=== PATIENT | female | born 1940 | race Caucasian/White ===

== ENCOUNTER 2024-09-15 20:04 | Emergency (ER) | payer MEDICARE, OTHER, SELFPAY ==
--- NOTE | ~2024-09-15 | CT_ITS ---
CT abdomen pelvis wo con Ordering provider: Alexia Junior PA-C History: 84 years Female with . LLQ pain, nausea . Comparison: None. Technique: CT abdomen and pelvis with IV and without oral contrast. Automated exposure control and it erative reconstruction technique were employed. The dose-length product was 1143.42 mGy-cm. Findings: VISUALIZED LOWER CHEST: Dependent atelectatic changes. Borderline cardiomegaly. Trace of pericardial effusion is seen posteriorly. 7 mm nodule is seen in the left lung base laterally. 6 months follow-up CT chest is advised. Tiny nodule in the right lung base measuring 5 mm is also noted. UPPER ABDOMINAL ORGANS: Liver: Normal. Gallbladder: Normal. Spleen: Normal. Stomach/duodenum: Small sliding hiatus hernia. Pancreas: Normal. Adrenals: Normal. Kidneys: Right parapelvic cyst measuring 1.8 cm is noted. PELVIC ORGANS: The bladder is underfilled. Artifacts are seen in the pelvis. BOWEL AND MESENTERY: Colon: diverticulitis of the sigmoid colon near to the junction with the descending colon is noted w ith thickening of the wall and surrounding fat stranding. No abscess formation seen... Normal appendi x. Small Bowel: Normal. No obstruction. Peritoneum/mesentery: No free air or free fluid. No mesenteric lymphadenopathy. RETROPERITONEUM: Mild atheromatous disease of the abdominal aorta. No retroperitoneal lymphadenopat hy. MUSCULOSKELETAL: Superficial soft tissues: The superficial soft tissues are normal. Bones: Age appropriate degenerative changes of the spine. Bilateral hip arthroplasty. Mild dextroscol iosis. Bilateral sacroiliitis. IMPRESSION: 1. Sigmoid colon diverticulitis with no abscess formation. 2. Bilateral lung nodules. 6 months follow-up CT is advised. No evidence of appendicitis or intestin al obstruction. Reviewed, dictated and finalized at location A. IMPRESSION: 1. Sigmoid colon diverticulitis with no abscess formation. 2. Bilateral lung nodules. 6 months follow-up CT is advised. No evidence of ap pendicitis or intestinal obstruction.
--- OUTSIDE RECORDS SUMMARY | 2024-09-15 20:06 | XMS_ITS | Continuity of Care Document ---
Author Organization [facility] ter Address [address] [place] [address] Phone Care Team Providers Care Research Chemical Engineer Name Role Phone Berenice TAYLOR Pierce Unavailable Unavailable Allergies, Adverse Reactions, Alerts Substance Reaction Status Criticality clindamycin Active No Information Medications Medication Instructions Dosage Effective Dates (start - stop) Status Comments levothyroxine 112 mcg tablet take 1 tablet by oral route every day 112 MCG - Active Tylenol Extra Strength 500 mg tablet take 2 tablet by oral route every 4 - 6 hours as needed not to exceed 8 tablets per 24hrs 1000 MG - Active turmeric root extract 500 mg capsule - Active Vitamin D3 4,000 unit capsule - Active [place] 3-6-9 1,200 mg capsule 1 tab daily - Active magnesium 250 mg tablet - Active Procedures Procedure Date New Patient E/M Moderate [facility] External Photos Est Patient E/M Moderate [facility] Est Patient E/M Moderate [facility] Est Pt Comprhensive Visl Field Exam, Limited Est Pt Comprhensive Scan Computerized; Optic Nerve 18 Est Pt Comprhensive VISUAL FIELD EXAMINATION(S) OFFICE/OUTPATIENT VISIT, NEW Cataract W/IOL 1 Stage Echo Exam Of The Eye, Professional, Left Anesth, Lens Surgery; 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; Without Medical Direction By A Physician Cataract W/Iol 1 Stage, Facility Fee May PATIENT DOCUMENTS NO EVENTS ON DISCHARGE Patient WO Preop Order For I v Antibiotic Surgical Site Inf (Ssi) Prophlaxis Eye Exam Established Patient Cataract W/IOL 1 Stage Cataract W/Iol 1 Stage, Facility Fee Apr PATIENT DOCUMENTS NO EVENTS ON DISCHARGE Patient WO Preop Order For I v Antibiotic Surgical Site Inf (Ssi) Prophlaxis Anesth, Lens Surgery; Security Installation Sales Technician S er; Without Medical Direction By A Physician Echo Exam Of The Eye, ProfessionalHenry Echo Exam Of Eye; Technical Component No OFFICE/OUTPATIENT VISIT, NEW Advance Directives Directive Yes / No Effective Date File Name No Information Encounters Encounter Description Practice Location Reason(s) For Visit Diagnoses Date Provider Providers Copied on Encounter New Patient E/M Moderate [facility], [address] [place], [place], [id number], tel:[phone] [place] Blurry vision (chief complaint) Dry eye syndrome of bilateral lacrimal glandsPresen ce of pseudophakia 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 [address], [id number], [place]. tel:[phone] Referring Provider: Pierce Ng, [address] [place] [address], [id number] . tel:[phone] Est Patient E/M Moderate [facility], [address] [place], [place], [id number], tel:[phone] 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 [address] [place] [address], [id number], [place]. tel:[phone] Referring Provider: Manuel Flowers, [address] [place] [address], [id number] . tel:[phone] Est Patient E/M Moderate [facility], [address] [place], [id number], [place] tel:[phone] [place] 1 year follow up on Thyrotoxicosi s (chief complaint) Thyrotoxicos is w diffuse goiter w/o thyrotoxic crisisDiplop ia 1 No Information Est Pt [facility], [facility] [address] [place], [id number], [place] tel:[phone] [place] 1yr DFE/OCT/RNFL and HVF 24-[address] Ortega. (chief complaint) Thyrotoxicos is w diffuse goiter w/o thyrotoxic crisisOther mechanical strabismusDi plopia 0 No Information [facility], [facility] [address] [place], [id number], [place] tel:[phone] [place] vf taped/untaped (chief complaint) Other mechanical strabismus 0 No Information Est Pt [facility], [facility] [address] [place], [id number], [place] tel:[phone] [place] 2 week follow up/lab results (chief complaint) Thyrotoxicos is w diffuse goiter w/o thyrotoxic crisisOther mechanical strabismusDi plopia 8 No Information Est Pt [facility], [facility] [address] [place], [id number], [place] tel:[phone] [place] 2 months follow-up (chief complaint) Thyrotoxicos is w diffuse goiter w/o thyrotoxic crisisOther mechanical strabismusDi plopia 8 No Information OFFICE/OUTPAT IENT VISIT, [facility], [address] [place], [id number], [place] tel:[phone] [place] plastic consult (chief complaint) Dermatochala sis of right lower eyelidDiplop iaOther mechanical strabismus 8 No Information [facility], [address] [place], [id number], [place] tel:[phone] [place] [facility] No Information 4 No Information [facility] [place], [address] [facility] [place], [id number], [place] tel:[phone] [facility] [place] No Information 4 [facility] [address] [place], [id number], [place]. tel:[phone] [facility], [address] [place] [address] [place], [id number], [place] tel:[phone] [place] [address] No Information 4 No Information [facility], [address] [place] [address] [place], [id number], [place] tel:[phone] [place], [place] [address]i [place] No Information 4 Dylon Garza. [address] [place] [address] [place], [id number], [place]. tel:[phone] [place] [address], [address] [place] [address] [place], [id number], [place] tel:[phone] [place] [address] eye cataract evaluation OS (chief complaint) Other and combined forms of senile cataract 4 No Information [facility], [address] [place] [address] [place], [id number], [place] tel:[phone] [place] No Information 4 No Information [facility], [address] [place] [address] [place], [id number], [place] tel:[phone] [place], [place] [address] [place] No Information 4 No Information [facility], [facility] [place], [id number], [place] tel:[phone] [place] [address] Surgi [place] No Information 4 [facility] [address] [place] [address] [place], [id number], [place]. tel:[phone] [place] [address], [address] [place] [address] [place], [id number], [place] tel:[phone] [place] [facility] [place] No Information 4 No Information [facility], [address] [place] [address] [place], [id number], [place] tel:[phone] Julien ASCAN (chief complaint) No Information No Information OFFICE/OUTPAT IENT VISIT, [facility] [place], [address] [place], [place], [id number], [place] tel:[phone] Jul[place] cataract evaluation (chief complaint) Other and combined forms of senile cataract No Information Referring Provider: Corinna Cm [address] , [place], [address]. tel:[phone] Family History Family Member Type Diagnosis Age At Onset Mother Problem (finding) diabetes mellitus type 2 Mother Problem (finding) glaucoma Payers Payer name Insurance type Covered democrat ID Authorcarinea monika(s) [facility] [id number] Social History Type Description Quantity Date Captured Comments Alcohol Use Details No Caffeine Use Details coffee 1 cup per day Tobacco Use Status Current non-smoker Smoking Status Never smoker Non-Smoking Tobacco Use Details : No Details Available : No Details Available Sex Female Chief Complaint And Reason For Visit From encounter dated '03/07/2023 14:50'. Blurry vision (chief complaint) Reason For Referral Reason For Referral No Information Plan Of Treatment Date Type Action Status Patient Education Cataracts: After Your V isit completed History Of Present Illness Encounter Date Complaint History Of Prese nt Illness Blurry vision The 82 year old female presents for evaluation of Blurry vision in the right eye and left eye. History of thyroid eye disease and Cataract sx OU. Patient states vision has been very cloudy, film in vision OU. Patient has been experiencing extreme itching, watering and burning for the past 6 months along with vision decrease. Patient currently on OTC AFT PRN OU. No flashes of light or floaters. Patient also experiencing light sensitivity. Graves disease The 80 year old female presents for evaluation of Graves disease in the right eye and left eye. The symptom is constant. Pt states vision is getting worse since last visit with a Dr. Pt states that shes had thyroid issues for about 5 years. Pt states that sometimes OD looks a little larger on certain days. Pt states she is struggling with double vision. Pt states the double vision happens mostly in peripheral vision but lately has been in central vision. Pt notes dryness and scratchiness OU. Pt states that sometimes when she wipes her OU she experiences pain. Pt is using levothyroxine to treat thyroid. Pt states that she is very light sensitive and gets burning sensation when out in the sun.Pt is using AFT. 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 It started about 1 year(s) ago. The symptom is frequent. The condition is worsening and now interfering with driving. The condition is described as seeing two images side by side that clears to one when either eye is closed. In addition, the condition is associated with daily activity and chores. Patient also c/o dryness and light sensitivity. Patient is using artificial tears prn, but c/o that it causes the eyes to burn at times. Patient feels the bulging of her eyes is stable, not worse, but saw an ad about a medication for bulging eyes and would like to know if something like that would be available. 1yr DFE/OCT/RNFL and HVF 24-[address] Ortega. The 79 year old female presents for evaluation of 1yr DFE/OCT/RNFL and HVF 24-[address] Ortega. 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 Patient reports vision has worsened since last visit, double vision is still persistent, pain/discomfort OS - quick on/off, itching on/off OU - OS worse, has fat deposits on outside of lower lids - seem to be growing, tearing OU - not as bad as before. Patient was refereed to Dr. Brownlee, but was told no treatment was needed to follow. Tried different prism lenses and none seem to help.Patient currently on AFT PRN scratchy vf taped/untaped The 79 year old female presents for evaluation of vf taped/untaped per Dr. Lovett. 2 week follow up/lab results The 77 year old female presents for 2 week follow up/lab results in the right eye and left eye. It started about 4 month(s) ago. The onset was progressive. The symptom is constant. The condition is not any better. The condition is described as having double vision. In addition, the condition is associated with looking to the left and when relaxed and head is slightlty tilted to the left. 2 months follow-up The 77 year o ld female presents for 2 months follow-up mechanical strabismus. The condition is described vision good and stable since last visit. Patient denies new changes/ or complaints. plastic consult per Dr. Lunsford, Patient being referred for constant double vision in OS, Per Dr. Lunsford's notes if patient lifts ASAEL the double vision goes away, patient states she only notces the double vision when looking to far left gaze, patient states OS lately has been tearing constantly, patient states since CE IOL OS 2013 Dr. Strange she has always felt something on ASAEL temporal side, patient states she feels pheripheal vision is decreased due to drooping lids, patient states she feels like she has a arredondo on 2nd eye cataract evaluation OS T he patient is present for evaluation of 2nd eye cataract evaluation OS per Dr. Lunsford, co-managed Dr. Lunsford, patient states she is now ready for 2nd eye cataract surgery OS, patient states over the past year she has noticed a decrease in OS vision, patient states some light sensitivty only at night, patient states some blurry vision OS ASCAN cataract evaluation The patient is present for evaluation of cataract evaluation per Dr. Lunsford co-managed, patient states over the past 2 years she has noticed a decrease in OU distance vision all the time, patient has noticed a lot of light sensitivty during the day and night, patient states she feels like she is looking through a fog Functional Status Date Functional Assessmen t No Information Instructions Date Instruction Additional Infor ana maria Impression/Plan - Pt education on importance of good glucose control/stability. RTC yearly CEE with DFE/Mac OCT. Continue care with PCP as directed. Related to Dry eye syndrome of bilateral lacrimal glands Impression/Plan - Le ns in good position. Vision stable.RT/RD precautions reviewed.Continue with yearly DFEs or prn Related to Presence of pseudophakia Impression/Plan - Ex am stable today vs 03/26. Patient has no new complaints. Will continue to monitor with yearly exams. 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 First episode of active disease in [id number] following LOVING. On exam, LAWRENCE is 1 (pain behind eyes, intermittent). No other signs of active disease. pupils brisk OU. +exophthalmos OU, +VA. EOm's with mild restriction. Ortho in primary. +lid retraction OU. No indications for emergent surgical intervention.Discussed treatment options. PAtient previously declined strab surgery with Dr. Solis. PAtient declined decompression. Will connect patient with administrators for chronic SHA [facility] study. 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 Discussed treatment plan with patient. Lengthy conversation was had with patient regarding options for correcting her current exophthalmos. Patient understands she can decide to proceed with Strabismus Surgery, with little to no improvement in Diplopia, or can try prism glasses. Patient wishes to hold of on moving forward with either option at this time. Patient advised to call and schedule an appointment in the event of further bulging of the eyes, pain or discomfort upon movement or if double vision worsens. TSI, Free T4, TSH, T3 ordered and given to patient in clinic today. Return in 1month for a follow up. *Patient is currently being treated during COVID-19 epidemic, which limits our availability to establish proper follow up care. Patient understands these limitations, and is aware that we will continue treatment and follow up based on our availability, as determined by local state and federal guidelines. 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 Discussed treatment plan with patient. Lengthy conversation was had with patient regarding options for correcting her current exophthalmos. Patient understands she can decide to proceed with Strabismus Surgery, with little to no improvement in Diplopia, or can try prism glasses. Patient wishes to hold of on moving forward with either option at this time. Patient understands she is no eligible for Tepezza due to her symptoms only being mechanical. Patient advised to call and schedule an appointment in the event of further bulging of the eyes, pain or discomfort upon movement or if double vision worsens. 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 Discussed treatment options with patient. Today no congestive or compressive or inflammtory symptoms found on exam related to thyroid eye disease. Free T3 and T4, TSH, and TSH-R AB lab reviewed with patient; positive TSHR AB consistent with graves disease, mostly euthyroid but low T3; pt to discuss with Endocrine. Diplopia Recommend patient wear prism or consider eye muscle sx. Patient declines prism. Mild proptosis RT; declines decompression sx due to risk. Referral for Neuro Optho/ Adult Strabimus for Eye muscle sx; made aware of incommitant nature of ocular muscle deviation, so surgery benefits might be limted. All questions answered and discussed in great detail with patient. 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 Use AT gtts for comfort and warm compress QID OU. 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 Discussed treatment options with patient. 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 Which would explain diplopia and orbit findings. Today no congestive or compressive or inflammtory symptoms found on exam related to thyroid eye disease. Free T3 and T4, TSH, and TSH-R AB lab ordered. Recommend patient wear prism. Patient declines prism, could trial steroids doubt those will help. Possible referral for Neuro Optho/ Adult Strabimus for Eye muscle sx; although possible low success due to incommitant nature of ocular muscle deviation. RNFL ordered and reviewed with patient. 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 Discussed treatment options with patient. CT scar ordered w/ and w/o sagital, coronal, aand axial 1mm cuts. Will continue to monitor. BUN creatine ordered. Patient instructed to bring paper report and disc. 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 Used over current RX on trial frame for 30 minutes with resolution of diplopia. Consider fresnel vs. ground in prism after review of imaging and rule out of other orbit etiologies of diplopia. Related to Diplopia Impression/Plan - Di scussed diagnosis in detail with patient. No treatment is required at this time. Will continue to observe condition and or symptoms. HVF reviewed with patient Related to Dermatochalasis of right lower eyelid - Cataracts account for the patient's complaints. Discussed all risks, benefits, procedures and recovery. Patient understands changing glasses will not improve vision. Patient desires to have surgery, recommend phacoemulsification with intraocular lens. Schedule CE/IOL OS. RL 2. Standard IOL, aim plano. Co-manage Dr. Lunsford. Related to Other and combined forms of senile cataract - Surgery Related to Other and combined forms of senile cataract - Discussed cataract s and surgery in detail. Full discussion R, B, A. Discussed IOL options. All questions answered. Patient wants surgery. Schedule CE/IOL OD RL 2. Standard IOL, aim plano. Co-manage Dr. Lunsford. 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
[2024-09-15 20:08] VITALS: BP 139/60; PULSE 85; RESP 18; TEMP 37.1; O2SAT 99
--- OUTSIDE RECORDS SUMMARY | 2024-09-15 20:41 | XMS_ITS | Continuity of Care Document ---
Author Organization [facility] ter Address [address] [place] [address] Phone Care Team Providers Care Associate Relations Specialist Name Role Phone Berenice TAYLOR Pierce Unavailable [...] Vitamin D3 4,000 unit capsule - Active Winigan 3-6-9 1,200 mg capsule 1 tab daily - Active magnesium 250 mg tablet - Active Procedures Procedure Date New Patient E/M Moderate [facility] External Photos Est Patient E/M Moderate [facility] Est Patient E/M Moderate [facility] Est Pt Comprhensive Visl Field Exam, Limited Est Pt Comprhensive Scan Computerized; Optic Nerve 18 Est Pt Comprhensive VISUAL FIELD EXAMINATION(S) OFFICE/OUTPATIENT VISIT, NEW Cataract W/IOL 1 Stage Echo Exam Of The Eye, Professional, Left Anesth, Lens Surgery; Clinical Manager Home Care S ervice; Without Medical Direction By A [...] Site Inf (Ssi) Prophlaxis Anesth, Lens Surgery; Clinical Manager Home Care S er; Without Medical Direction By A Physician Echo Exam Of The Eye, ProfessionalHenry Echo Exam Of Eye; Technical Component No OFFICE/OUTPATIENT VISIT, NEW Advance Directives Directive Yes / No Effective Date File Name No Information Encounters Encounter Description Practice Location Reason(s) For Visit Diagnoses Date Provider Providers Copied on Encounter New Patient E/M Moderate [facility], [address] [place], [place], [id number], tel:[phone] [place] Blurry vision (chief complaint) Dry eye syndrome of bilateral lacrimal glandsPresen ce of pseudophakia 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 [address], [id number], [place]. tel:[phone] Referring Provider: Pierce Ng, [address] [place] [address], [id number] . tel:[phone] Est Patient E/M Moderate [facility], [address] [place], [place], [id number], tel:[phone] [facility] Graves disease (chief complaint) Thyrotoxicos is with diffuse goiter without thyrotoxic crisis or storm Mar-2 1 Magan Jackson. [address] [place] [address], [id number], [place]. tel:[phone] Referring Provider: Manuel Flowers, [address] [place] [address], [id number] . tel:[phone] Est Patient E/M Moderate [facility], [address] [place], [id number], [place] tel:[phone] [place] 1 year follow up on Thyrotoxicosi s (chief complaint) Thyrotoxicos is w diffuse goiter w/o thyrotoxic crisisDiplop ia 1 No Information Est Pt [facility], [facility] [place], [id number], [place] tel:[phone] [place] 1yr DFE/OCT/RNFL and HVF 24-[address] Ortega. (chief complaint) Thyrotoxicos is w diffuse goiter w/o thyrotoxic crisisOther mechanical strabismusDi plopia 0 No Information [facility], [facility] [place], [id number], [place] tel:[phone] [place] vf taped/untaped (chief complaint) Other mechanical strabismus 0 No Information Est Pt [facility], [facility] [address] [place], [id number], [place] tel:[phone] [place] 2 week follow up/lab results (chief complaint) Thyrotoxicos is w diffuse goiter w/o thyrotoxic crisisOther mechanical strabismusDi plopia 8 No Information Est [facility], [facility] [place], [id number], [place] tel:[phone] [place] 2 months follow-up (chief complaint) Thyrotoxicos is w diffuse goiter w/o thyrotoxic crisisOther mechanical strabismusDi plopia 8 No Information OFFICE/OUTPAT IENT VISIT, [facility], [address] [place], [id number], [place] tel:[phone] [place] plastic consult (chief complaint) Dermatochala sis of right lower eyelidDiplop iaOther mechanical strabismus 8 No Information [facility], [address] [place], [id number], [place] tel:[phone] [facility] No Information 4 No Information [facility] [place], [address] [facility] [place], [id number], [place] tel:[phone] [facility] [place] No Information 4 [facility]. [address] [place], [id number], [place]. tel:[phone] [facility], [address] [place] [address] [place], [id number], [place] tel:[phone] [place] [address] No Information 4 No Information [facility], [address] [place] [address] [place], [id number], [place] tel:[phone] [place], [place] [address] [place] No Information 4 Dylon Garza. [address] [place] [address] [place], [id number], [place]. tel:[phone] [place] [address], [address] [place] [address] [place], [id number], [place] tel:[phone] [place] [address] eye cataract evaluation OS (chief complaint) Other and combined forms of senile cataract 4 No Information [facility], [address] [place] [address] [place], [id number], [place] tel:[phone] [place] No Information 4 No Information [facility], [address] [place] [address] [place], [id number], [place] tel:[phone] [place], [place] [address] [place] No Information 4 No Information [facility], [facility] [place], [id number], [place] tel:[phone] [place] [address] [facility]i [place] No Information 4 [facility] [address] [place] [address] [place], [id number], [place]. tel:[phone] [place] [address], [address] [place] [address] [place], [id number], [place] tel:[phone] [place] [facility] [place] No Information 4 No Information [facility] [place], [address] [place] [address] [place], [id number], [place] tel:[phone] Julien ASCAN (chief complaint) No Information No Information OFFICE/OUTPAT IENT VISIT, [facility] [place], [address] [place], [place], [id number], [place] tel:[phone] Julien cataract evaluation (chief complaint) Other and combined forms of senile cataract No Information Referring Provider: Corinna Cm [address] , [place], [address]. tel:[phone] Family History Family Member Type Diagnosis Age At Onset Mother Problem (finding) glaucoma Mother Problem (finding) diabetes mellitus type 2 Payers Payer name Insurance type Covered democrat ID Authorcarinea monika(s) [facility] [id number] Social History Type Description Quantity Date Captured [...] SHA. First episode of active disease in 5039-2437 following LOVING. On exam, LAWRENCE is 1 (pain behind eyes, intermittent). No other signs of active disease. pupils brisk OU. +exophthalmos OU, +VA. EOm's with mild restriction. Ortho in primary. +lid retraction OU. No indications for emergent surgical intervention.Discussed treatment options. PAtient previously declined strab surgery with Dr. Solis. PAtient declined decompression. 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
[2024-09-15 21:42] LABS: Basophils Absolute Auto 0.1 K/mm3 (0.0-0.1); Basophils Percent Auto 0.6 % (0.2-1.2); Eosinophils Absolute Auto 0.3 K/mm3 (0-0.3); Eosinophils Percent Auto 2.5 % (0-4.4); Hematocrit 45.9 % (37.0-47.0); Hemoglobin 14.7 g/dL (12.0-15.0); Immature Granulocyte Absolute 0.07 K/mm3 (0.00-0.031); Immature Granulocyte Percent A 0.6 % (0-0.5); Mean Corpuscular Hemoglobin 29.6 pg (26-34); Mean Corpuscular Volume 92.5 fl (80-100); Mean Platelet Volume 8.6 fl (7.4-10.4); Monocytes Absolute Auto 1.1 K/mm3 (0.1-0.6); Monocytes Percent Auto 9.2 % (2.6-8.5); Neutrophils Absolute Auto 8.9 K/mm3 (1.3-6.7); Neutrophils Percent Auto 73.1 % (45.5-73.1); Platelet Count Result 264 k/mm3 (150-375); Red Blood Count 4.96 M/mm3 (4.2-5.4); Red Cell Distribution Width 13.9 % (11.5-14.5); White Blood Count 12.2 K/mm3 (4.5-10.0)
[2024-09-15 21:48] LABS: Add Urine Microscopic? YES; Appearance Urine Clear (Clear); Bacteria Urine Rare /hpf; Bilirubin Urine Negative (Negative); Blood Urine Negative (Negative); Color Urine Yellow (Yellow); Glucose Urine UA Negative (Negative); Ketones Urine Negative (Negative); Leukocyte Esterase Ur 2+ LEU/UL (Negative); Nitrate Urine Negative (Negative); Non Pathogenic Casts 0-2; Protein Urine Negative (Negative); RBC Urine 0-2 /hpf (0-2); Specific Grav Ur 1.016 (1.001-1.035); Squamous Epithelial Cell Urine Few /hpf (Few); Urobilinogen Urine 0.2 mg/dL (<2.0); WBC Urine 21-50 /hpf (0-3); pH Urine 6.5 (5.0-9.0)
[2024-09-15 21:55] LABS: Alanine Aminotransferase 15 U/L (6-35); Albumin Level 4.1 g/dL (3.5-5.1); Alkaline Phosphatase 87 U/L (38-126); Anion Gap 8 mmol/L (4-12); Aspartate Amino Transferase 22 U/L (14-36); Bilirubin,Total 0.4 mg/dL (0.2-1.3); Blood Urea Nitrogen 23 mg/dL (7-17); Calcium 9.5 mg/dL (8.4-10.2); Carbon Dioxide 32 mmol/L (22-30); Chloride 100 mmol/L (98-107); Estimated CRCL calculation 35 ml/min; Estimated Glomerular Filt Rate 53; Glucose 101 mg/dL (65-110); Lipase 36 U/L (23-300); Potassium 4.1 mmol/L (3.4-5.0); Sodium 140 mmol/L (137-145)
--- NOTE | 2024-09-15 21:55 | ED_ITS ---
HPI - Abdominal Pain General Chief Complaint: Abdominal Pain Stated Complaint: abd pain Time Seen by Provider: 09/15/24 20:13 Source: patient Mode of arrival: ambulatory Limitations: no limitations History of Present Illness HPI narrative: Patient is an 84-year-old female who presents the ED with report of lower abdominal pain. Patient reports history of diverticulitis/diverticulosis. States she has had recurrent episodes in the past. States it has been approximately 6 months since her last episode. Began having pain throughout her lower abdomen over the past 1 week. Feels similar to previous episodes. Reports recent constipation, states she has been taking Colace over the last couple of days without improvement or significant stool passage. Denies rectal bleeding, melena, nausea, vomiting, fevers. Denies urinary complaints. Related Data Home Medications ?Medication ?Instructions ?Recorded ?Confirmed ?Last Taken ?Type cholecalciferol (vitamin D3) 25 25 mcg PO DAILY 09/05/24 09/05/24 Unknown History mcg (1,000 unit) capsule levothyroxine 100 mcg capsule 100 mcg PO DAILY 09/05/24 09/05/24 Unknown History magnesium 250 mg tablet 250 mg PO DAILY 09/05/24 09/05/24 Unknown History Allergies Allergy/AdvReac Type Severity Reaction Status Date / Time clindamycin Allergy Severe Rash Verified 09/05/24 09:51 Review of Systems 2 Review of Systems: All systems reviewed & are unremarkable except as noted in HPI. All systems reviewed & are unremarkable except as noted in HPI and below PMFSH Past Medical History Medical History Hypothyroidism (acquired) Surgical History Surgical History History of right hip replacement History of left hip replacement History of cataract surgery History of cystocele repair H/O endoscopy H/O: hysterectomy History of tonsillectomy and adenoidectomy History of removal of skin mole Family History Family History Mother , 1972 Depression Diabetes mellitus Anxiety Thyroid disease Pacemaker Stomach cancer Father Heart disease Social History Social History Smoking status: Never smoker Alcohol intake: current Substance use: never Substance use type: does not use Do You Feel Safe in your Home?: Yes Lack of Transportation: No Lack of Food: Never True Current Housing: I Have Housing Concerned About Future Housing: No Difficulty Paying Gas/Electric Bills: No Difficulty Paying for Meds: No Currently Unemployed: Decline to Answer Education: Decline to Answer Difficulty w/ Childcare or Family Care: No Living arrangements: alone Occupation/Education: retired Gender identity (if verbalized by the patient): Female Sexual Orientation (if Verbalized by the Patient): Straight or Heterosexual Exam 2 Narrative: GENERAL: Elderly but well appearing, well-nourished, non-toxic, in no acute distress. HEAD: Normocephalic, atraumatic. RESPIRATORY: Airway patent, respirations nonlabored. Clear to auscultation bilaterally, no rales, rhonchi, wheezing. CARDIOVASCULAR: Regular rate and rhythm without murmurs, rubs, or gallops. ABDOMINAL: Soft, very focal tenderness to palpation in LLQ, slight rebound. Nondistended. Slightly hypoactive BS. MUSCULOSKELETAL: Moves all extremities. No gross deformities. SKIN: Warm, dry, normal color. NEURO: A&O X3. Speech clear. Cranial nerves II-XII grossly intact. Steady gait. No ataxic movements. PSYCHIATRIC: Appropriate mood and affect. Normal interaction. Course Vital Signs Vital signs: Vital Signs Temperature 98.7 F 09/15/24 20:08 Pulse Rate 85 09/15/24 20:08 Respiratory Rate 18 09/15/24 20:08 Blood Pressure 139/60 09/15/24 20:08 Pulse Oximetry 99 09/15/24 20:08 Oxygen Delivery Room Air 09/15/24 20:08 Temperature 98.7 F 09/15/24 20:08 Pulse Rate 86 09/16/24 00:11 Respiratory Rate 16 09/16/24 00:11 Blood Pressure 136/59 L 09/16/24 00:11 Pulse Oximetry 98 09/16/24 00:11 Oxygen Delivery Room Air 09/15/24 20:08 MDM - Abdominal Pain MDM Narrative Medical decision making narrative: Patient presented to ED with 1 week history of lower abdominal pain. History of previous diverticulitis, states this feels similar. Vital signs are stable upon arrival. Patient is afebrile. Cbc with white blood cell count of 12.2. No bandemia. CMP is fairly unremarkable. Stable electrolytes. Stable kidney function. Normal LFTs and lipase. UA with 2+ leuk esterase, 21-50 WBC, rare bacteria. Few squamous cells. Sent for culture. Possibly contaminated catch. Patient denies urinary complaints. CT scan of abdomen/pelvis was obtained and showing acute sigmoid diverticulitis. No perf or abscess. Discussed lab and imaging findings with patient. She states she is ready to go home. She has not required any pain medication throughout the ED, declined pain medication for home. She feels comfortable going home. Will discharge on Cipro and Flagyl, advised close follow-up with PCP for further evaluation. Discussed diverticulitis diet, will also refer to GI/general surgery for further evaluation given patient has recurrent episodes. Patient given return precautions. She voiced understanding. Discharged in stable condition. Medical Records Attestation: I reviewed the patient's medical records. Lab Data Attestation: I reviewed the patient's lab results. 09/15/24 21:27 09/15/24 21:27 Labs: Lab Results 09/15/24 09/15/24 09/15/24 Range/Units 21:27 21:34 22:00 WBC 12.2 H (4.5-10.0) K/mm3 RBC 4.96 (4.2-5.4) M/mm3 Hgb 14.7 (12.0-15.0) g/dL Hct 45.9 (37.0-47.0) % MCV 92.5 (80-100) fl MCH 29.6 (26-34) pg MCHC 32.0 (32-36) g/dl RDW 13.9 (11.5-14.5) % Plt Count 264 (150-375) k/mm3 MPV 8.6 (7.4-10.4) fl Immature Gran % (Auto) 0.6 H (0-0.5) % Neut % (Auto) 73.1 (45.5-73.1) % Lymph % (Auto) 14.0 L (18.3-44.2) % [place] % (Auto) 9.2 H (2.6-8.5) % Eos % (Auto) 2.5 (0-4.4) % Baso % (Auto) 0.6 (0.2-1.2) % Lymph # (Auto) 1.70 (0.9-3.2) K/mm3 [place] # (Auto) 1.1 H (0.1-0.6) K/mm3 Eos # (Auto) 0.3 (0-0.3) K/mm3 Baso # (Auto) 0.1 (0.0-0.1) K/mm3 Abs Immat Gran (auto) 0.07 H (0.00-0.031) K/mm3 Absolute Neuts (auto) 8.9 H (1.3-6.7) K/mm3 Absolute Nucleated RBC 0.000 (0.0-0.012) K/mm3 Nucleated RBC % 0.0 (0.0-0.2) % Sodium 140 (137-145) mmol/L Potassium 4.1 (3.4-5.0) mmol/L Chloride 100 (98-107) mmol/L Carbon Dioxide 32 H (22-30) mmol/L Anion Gap 8 (4-12) mmol/L BUN 23 H (7-17) mg/dL Creatinine 1.00 (0.7-1.0) mg/dL Estim Creat Clear Calc 35 ml/min Estimated GFR 53 L (59 - ) Glucose 101 (65-110) mg/dL Lactic Acid 1.2 (0.7-2.0) mmol/L Calcium 9.5 (8.4-10.2) mg/dL Total Bilirubin 0.4 (0.2-1.3) mg/dL AST 22 (14-36) U/L ALT 15 (6-35) U/L Alkaline Phosphatase 87 (38-126) U/L Total Protein 7.0 (6.3-8.2) g/dL Albumin 4.1 (3.5-5.1) g/dL Lipase 36 (23-300) U/L Urine Color Yellow (Yellow) Urine Appearance Clear (Clear) Urine pH 6.5 (5.0-9.0) Ur Specific [place] 1.016 (1.001-1.035) Urine Protein Negative (Negative) mg/dL Urine Glucose (UA) Negative (Negative) mg/dL Urine Ketones Negative (Negative) mg/dL Ur Blood (Man) Negative (Negative) Urine Nitrate Negative (Negative) Urine Bilirubin Negative (Negative) Urine Urobilinogen 0.2 (<2.0) mg/dL Leukocyte Esterase Rfl 2+ H (Negative) PATRICA/UL Urine RBC 0-2 (0-2) /hpf Urine WBC 21-50 H (0-3) /hpf Ur Squamous Epith Cells Few (Few) /hpf Urine Bacteria Rare /hpf Urine Casts 0-2 Imaging Data Attestation: I personally reviewed and interpreted this imaging study as follows: Radiologist's impression: STAT RAD CT abd/pelvis: Impression: Acute sigmoid diverticulitis with mural thickening and pericolonic stranding. No drainable fluid collection. No bowel obstruction. No free air or ascites. No hydronephrosis or renal calculus. Cardiomegaly. Small hiatal hernia. Distal esophageal mural thickening, inflammation versus underdistention. Bilateral hip prosthesis. Discharge Plan Discharge Clinical Impression: Diverticulitis of sigmoid colon, Abnormal finding on urinalysis Patient Disposition: Home Condition: Stable Instructions: Antibiotic Form, Diverticulitis (ED), Diverticulitis Diet (ED) Additional Instructions: Take antibiotics as prescribed for diverticulitis. It is important you finish both courses. Avoid alcohol use while taking Flagyl/metronidazole as this can cause a vomiting reaction. Stay well hydrated. Recommend low fiber diet while on antibiotics, then gradually increasing fiber intake. Follow-up with primary care doctor, GI, General surgery for further evaluation. Return to the ED if you experience worsening or severe pain, unable to keep down food or drink, rectal bleeding, dark black stools, persistent fevers, or any other symptoms of concern. Patient Language: Serbian Prescriptions: New metronidazole 500 mg tablet 500 mg PO Q8H 7 Days Qty: 21 0RF ciprofloxacin HCl 500 mg tablet 500 mg PO Q12H 7 Days Qty: 14 0RF No Action levothyroxine 100 mcg capsule 100 mcg PO DAILY magnesium 250 mg tablet 250 mg PO DAILY cholecalciferol (vitamin D3) 25 mcg (1,000 unit) capsule 25 mcg PO DAILY Follow-up/Referrals: Jose M Whitlock MD [Physician] - (GENERAL SURGERY) Chip Pitts MD [Primary Care Provider] - Alexandre Egan MD [Physician] - (GI) Mauricio Chao MD [Physician] - (GI) Time of Disposition: 00:35
[2024-09-15] MEDS: SODIUM CHLORIDE 0.9% IV 1,000 ML 999 ML IV CONT (22:09)
[2024-09-15 22:14] LABS: Lactic Acid Reflex 1.2 mmol/L (0.7-2.0)
[2024-09-16 00:11] VITALS: BP 136/59; PULSE 86; RESP 16; O2SAT 98
[2024-09-16] MEDS: CIPROFLOXACIN 500 MG TAB PO (00:49)
[2024-09-16] MEDS: metroNIDAZOLE 500 MG TABLET PO (00:49)
== END 2024-09-16 01:35 | disposition home or self-care (01) ==
PROVIDERS: Emergency Provider Physician Assistant; PCP Emergency Medicine
DX: K57.32 Diverticulitis of large intestine without perforation or abscess without bleeding (principal); R82.998 Other abnormal findings in urine; E03.9 Hypothyroidism, unspecified; Z96.643 Presence of artificial hip joint, bilateral; Z98.49 Cataract extraction status, unspecified eye; Z90.710 Acquired absence of both cervix and uterus; Z79.899 Other long term (current) drug therapy
CPT/HCPCS: 36415; 74176; 80053; 81001; 83605; 83690; 85025; 87086; 96360; 99284; A9270; J7030

== ENCOUNTER 2024-12-20 11:45 | Emergency (ER) | payer MEDICARE, OTHER, SELFPAY ==
--- NOTE | ~2024-12-20 | XR_ITS ---
XR chest 2V Ordering provider: MARBELLA Haywood-Allyssa History: 84 years Female with . cough, prev smoker . Comparison: None. FINDINGS: MEDIASTINUM: The cardiac silhouette is not enlarged. LUNGS: No infiltrates, effusions or pneumothorax. OTHER: No free air under the diaphragm. IMPRESSION: No acute cardiopulmonary pathology. Reviewed, dictated and finalized at location A.
[2024-12-20 11:57] VITALS: BP 134/82; PULSE 79; RESP 16; TEMP 37.1; O2SAT 100
--- NOTE | 2024-12-20 11:59 | ED.URI ---
HPI - URI/Sore Throat General Chief Complaint: Upper Respiratory Infection Stated Complaint: Bad Cough Time Seen by Provider: 12/20/24 11:46 Patient presents to [facility] with cough that worsened yesterday and overnight. Patient noted hearing some wheezing and having significant coughing with chest pain with the cough. Patient noted using drops without relief of symptoms. Patient spoke with primary care physician this morning could not get in was told to come to urgent care where they could do a chest x-ray. Patient is a former smoker, noted nodules and history of pneumonia. Denies fever, chills, body aches, increasing dizziness, nasal congestion, sore throat, ear pain, headache, nausea, vomiting, diarrhea. Related Data Home Medications ?Medication ?Instructions ?Recorded ?Confirmed ?Last Taken ?Type cholecalciferol (vitamin D3) 25 25 mcg PO DAILY 09/05/24 12/20/24 Unknown History mcg (1,000 unit) capsule magnesium 250 mg tablet 250 mg PO DAILY 09/05/24 12/20/24 Unknown History mirabegron 25 mg tablet,extended mg PO 12/20/24 Unknown History release 24 hr (Myrbetriq) Allergies Allergy/AdvReac Type Severity Reaction Status Date / Time clindamycin Allergy Severe Rash Verified 12/20/24 12:07 Review of Systems Constitutional: Constitutional: Reports as per HPI, Denies chills, Reports fatigue, Denies fever(s) and Denies weakness Eyes: Eyes: Reports no additional eye complaints ENT: Reports as per HPI, Denies vertigo, Denies dizziness, Denies epistaxis, Denies nasal congestion and Denies sore throat Cardiovascular: Cardiovascular: Reports no additional cardiovascular complaints Respiratory: Respiratory: Reports as per HPI, Reports chest congestion, Reports cough, Reports dyspnea and Reports wheezing Gastrointestinal: Gastrointestinal: Reports no additional gastrointestinal complaints Genitourinary: Genitourinary: Reports no additional female genitourinary complaints Musculoskeletal: Musculoskeletal: Reports no additional musculoskeletal complaints Integumentary/Breasts: Skin/Breast: Reports as per HPI, Denies erythema and Denies rash Neurologic: Reports as per HPI, Denies vertigo, Denies dizziness, Denies headache(s), Denies numbness and Denies weakness Psychiatric: Psychiatric: Reports no additional psychiatric complaints Endocrine: Endocrine: Reports no additional endocrine complaints Hematologic/Lymphatic: Hematologic/Lymphatic: Reports no additional hematologic/lymphatic complaints Allergic/Immunologic: Allergic/Immunologic: Reports no additional allergic/immunologic complaints [facility] Past Medical History Medical History Hypothyroidism (acquired) Surgical History Surgical History History of right hip replacement History of left hip replacement History of cataract surgery History of cystocele repair H/O endoscopy H/O: hysterectomy History of tonsillectomy and adenoidectomy History of removal of skin mole Family History Family History Mother , 1972 Depression Diabetes mellitus Anxiety Thyroid disease Pacemaker Stomach cancer Father Heart disease Social History Social History Smoking status: Never smoker Alcohol intake: current Substance use: never Substance use type: does not use Do You Feel Safe in your Home?: Yes Lack of Transportation: No Lack of Food: Never True Current Housing: I Have Housing Concerned About Future Housing: No Difficulty Paying Gas/Electric Bills: No Difficulty Paying for Meds: No Currently Unemployed: Decline to Answer Education: Decline to Answer Difficulty w/ Childcare or Family Care: No Living arrangements: alone Occupation/Education: retired Gender identity (if verbalized by the patient): Female Sexual Orientation (if Verbalized by the Patient): Straight or Heterosexual Exam Const: General: healthy appearing and no acute distress Nutritional Appearance: well nourished Orientation/consciousness: patient oriented x3 Limitations: no limitations HENMT: Head: normal to inspection Ears: external ears normal and TM's normal bilaterally Face/Nose/Sinus: Normal external nose present and Normal nares present Face and sinus: normal facial exam and sinuses nontender Mouth: Yes Normal oral and palatal mucosa present Throat: posterior oropharynx normal Neck: Neck: normal visual inspection and no lymphadenopathy Chest: Chest palpation & inspection: normal inspection of the chest and no tenderness Resp: Effort & Inspection: labored and uses accessory muscles Auscultation: no crackles, no rales, no rhonchi, no wheezes and diminished lung sounds on the right in the lower lung wisdom Other: dry cough noted Cardio: Rate: regular rate Rhythm: regular rhythm Skin: General skin exam: normal color Rashes: no rashes Wounds: no wounds Neuro: General: patient oriented x3 Speech: normal speech Gait exam (Neuro): Normal gait present Psych: Mental Status: mental status grossly normal Affect: normal affect Attitude: cooperative Course Course Level of Care: Express Care Visit Vital Signs Vital signs: Vital Signs Temperature 98.7 F 12/20/24 11:57 Pulse Rate 79 12/20/24 11:57 Respiratory Rate 16 12/20/24 11:57 Blood Pressure 134/82 12/20/24 11:57 Pulse Oximetry 100 12/20/24 11:57 Temperature 98.7 F 12/20/24 11:57 Pulse Rate 79 12/20/24 11:57 Respiratory Rate 16 12/20/24 11:57 Blood Pressure 134/82 12/20/24 11:57 Pulse Oximetry 100 12/20/24 11:57 MDM - URI/Sore Throat MDM Narrative Medical decision making narrative: Discharge instructions reviewed with patient, as well as provided in writing per nursing staff. The instructions also include specific and strict return/GO TO THE ER as well as f/u information. All questions have been answered, and the patient deny any further questions with discharge and discharge plan. Differential Diagnosis Differential diagnosis: Likely otitis media, sinusitis, viral infection, influenza and pharyngitis Medical Records Attestation: I reviewed the patient's medical records. Lab Data Attestation: I reviewed the patient's lab results. Lab results narrative: negative Labs: Lab Results 12/20/24 Range/Units 12:28 POC Influenza A Ag Negative (Negative) POC Influenza B Ag Negative (Negative) POC SARS CoV-2 Ag Negative (Negative) Imaging Data Radiologist's impression: IMPRESSION: No acute cardiopulmonary pathology. Reviewed, dictated and finalized at location A. Discharge Plan Discharge Clinical Impression: Bronchitis Patient Disposition: Home Condition: Stable Instructions: Antibiotic Form, Acute Bronchitis (ED), Viral Syndrome (ED) Additional Instructions: Return to urgent care or go to the ER for new or worsening symptoms. Continue to take Tylenol or Motrin for pain. Use a humidifier or vaporizer at night. Take Medications as prescribed. Drink plenty of water. 8-10 glasses per day. Use flonase 2 times per day for 5 days then as needed Take mucinex 2 times per day and be sure to take with 8oz of water. Follow up with Primary provider if not getting better. Return to Express Care or go to the ER for new or worsening symptoms. Take the full dose of steroids as directed to decrease inflammation and open up sinus and airway Increase water intake to 8-10 glasses per day Use the albuterol inhaler every 4 hours as needed for cough, wheezing, shortness of breath. Patient Language: Kittitian Prescriptions: New benzonatate 200 mg capsule 200 mg PO TID PRN (Reason: cough) Qty: 30 0RF methylprednisolone [Medrol (Salbador)] 4 mg tablets,dose pack See Rx Instructions .ROUTE .COMPLEX Qty: 21 0RF Rx Instructions: for 6 days albuterol sulfate [Ventolin HFA] 90 mcg/actuation HFA aerosol inhaler 2 puff inhalation QID PRN (Reason: shortness of breath or wheezing) Qty: 8.5 0RF No Action mirabegron [Myrbetriq] 25 mg tablet extended release 24 hr PO levothyroxine 100 mcg capsule 100 mcg PO DAILY Qty: 90 3RF magnesium 250 mg tablet 250 mg PO DAILY cholecalciferol (vitamin D3) 25 mcg (1,000 unit) capsule 25 mcg PO DAILY Follow-up/Referrals: Chip Pitts MD [Primary Care Provider] - Time of Disposition: 12:42
[2024-12-20 12:30] LABS: EDCOVIDSCREEN Negative (Negative); EDINFLUASCREEN Negative (Negative); EDINFLUBSCREEN Negative (Negative)
== END 2024-12-20 12:36 | disposition home or self-care (01) ==
PROVIDERS: Emergency Provider Nurse Practitioner Family; PCP Emergency Medicine
DX: J40 Bronchitis, not specified as acute or chronic (principal); Z20.822 Contact with and (suspected) exposure to COVID-19; E03.9 Hypothyroidism, unspecified; Z96.643 Presence of artificial hip joint, bilateral
CPT/HCPCS: 71046; 87426; 87804; 99213; G0463

== ENCOUNTER 2025-01-30 13:33 | Outpatient (CLI) | payer MEDICARE, OTHER, SELFPAY ==
--- NOTE | 2025-01-30 13:48 | ECG_ITS ---
Test Date: 2025-01-30 13:57:35 Measurements Intervals [place] Rate: 68 P: 23 WV: 171 QRS: -26 QRSD: 89 T: 50 QT: 382 QTc: 406 Interpretive Statements SINUS RHYTHM WITH FREQUENT SUPRAVENTRICULAR PREMATURE COMPLEXES BORDERLINE ST-T WAVE ABNORMALITY- HIGH LATERAL LEADS BASELINE ARTIFACT- I, II, III, AVR, AVL, AVF, V4-V6 BORDERLINE ECG No previous ECG available for comparison Electronically Signed On 01-30-2025 14:33:34 CDT by Bari Bloom D.O.
== END 2025-01-30 13:34 | disposition home or self-care (01) ==
LOC: ANHCARD 13:35
PROVIDERS: PCP Emergency Medicine; Visit Provider Emergency Medicine
DX: Z01.810 Encounter for preprocedural cardiovascular examination (principal); R94.31 Abnormal electrocardiogram [ECG] [EKG]
CPT/HCPCS: 93005